=== PATIENT | male | born 1965 | race Caucasian/White ===

== ENCOUNTER → 2017-10-31 20:34 | Outpatient (CLI) | payer BC, SELFPAY | PROVIDERS: Visit Provider Physician Assistant Medical | DX: J02.9 Acute pharyngitis, unspecified (principal) | CPT/HCPCS: 87081 ==

== ENCOUNTER → 2020-06-04 10:38 | Outpatient (CLI) | payer BC, SELFPAY ==
[2018-11-11 15:23] VITALS: BMI 25.7
[2020-06-04 13:47] LABS: T4 Free Direct 0.97 ng/dL (0.76-1.46)
== END ==
PROVIDERS: PCP Family Medicine; Referring Provider Family Medicine; Visit Provider Family Medicine
DX: E04.1 Nontoxic single thyroid nodule (principal)
CPT/HCPCS: 36415; 84439; 84443

== ENCOUNTER → 2020-06-09 14:03 | Outpatient (CLI) | payer BC, SELFPAY ==
[2018-11-11 15:23] VITALS: BMI 25.7
--- NOTE | 2020-06-09 14:12 | US_ITS ---
STUDY: THYROID ULTRASOUND REASON FOR EXAM: Male, 55 years old. NODULE FELT ON EXAM TECHNIQUE: Ultrasound evaluation of the thyroid was performed with real-time and static esquivel-scale imaging. COMPARISON: None. FINDINGS: RIGHT LOBE: The right lobe of the thyroid gland measures 5.5 x 1.8 x 1.8 cm. There is a homogeneous echotexture. Arising from the inferior aspect of the lower pole of the right lobe, there is a hyperechoic solid nodule measuring 5 x 6 x 6 mm. The nodule has smooth margins. There is no associated calcification. Findings are consistent with a TI-RADS category 3, mildly suspicious. Given the small size of the nodule, less than 1.5 cm, no specific follow-up evaluation is advised. LEFT LOBE: The left lobe of the thyroid gland measures 4.9 x 1.7 x 1.9 cm. There is a homogeneous echotexture. There are no demonstrated solid, cystic or complex lesions. ISTHMUS: The isthmus measures 5 mm. . The regional lymph nodes are normal. US/Thyroid IMPRESSION: 6 mm hyperechoic solid nodule in the lower pole of the right lobe, considered mildly suspicious. Given the small size of the nodule, based on TI-RADS criteria, no specific further evaluation is advised. Otherwise, normal exam. Electronically Signed: Josh Sky MD at 3:10 EDT , Service support ,
== END ==
PROVIDERS: PCP Family Medicine; Referring Provider Family Medicine; Visit Provider Family Medicine
DX: E04.1 Nontoxic single thyroid nodule (principal)
CPT/HCPCS: 76536

== ENCOUNTER → 2020-07-16 15:34 | Outpatient (CLI) | payer BC, SELFPAY ==
[2018-11-11 15:23] VITALS: BMI 25.7
== END ==
PROVIDERS: PCP Family Medicine; Referring Provider Family Medicine; Visit Provider Family Medicine
DX: Z20.828 Contact with and (suspected) exposure to other viral communicable diseases (principal)
CPT/HCPCS: 87635; U0003

== ENCOUNTER → 2020-12-07 16:37 | Outpatient (CLI) | payer BC, SELFPAY ==
[2018-11-11 15:23] VITALS: BMI 25.7
--- NOTE | 2020-12-07 16:40 | RAD_ITS ---
INDICATION: viral illness, chest pain EXAMINATION/TECHNIQUE: X-RAY - XR Chest 2 Views COMPARISON: 08/17/2020. FINDINGS: The lungs are clear. The cardiomediastinal silhouette is unremarkable. No pleural effusion or pneumothorax. No acute osseous abnormalities. RAD/Chest PA and Lateral IMPRESSION: No acute radiographic abnormalities. Electronically Signed: Stan Garber MD at 16:59 EDT Tel , Service support ,
== END ==
PROVIDERS: PCP Family Medicine; Referring Provider Family Medicine; Visit Provider Family Medicine
DX: B34.9 Viral infection, unspecified (principal)
CPT/HCPCS: 71046; 87635; U0002

== ENCOUNTER → 2023-04-06 | Outpatient (CLI) | payer OTHER, SELFPAY ==
[2023-04-06 17:37] LABS: Absolute Lymphocyte Count 1.73 X10^3/uL (0.83-4.51); Absolute Neutrophil Count 4.8 X10^3/uL (2.0-7.7); Basophil# 0.04 X10^3/uL; Basophil% 0.5 % (0-1); Eosinophil# 0.22 X10^3/uL; Hematocrit 53.1 % (40-54); Hemoglobin 17.3 g/dL (13.0-16.5); Lymphocyte # 1.73 X10^3/ul (0.83-4.51); Lymphocyte % 23.6 % (19-41); Mean Corp Hgb Conc 32.6 g/dL (32-36); Mean Corpuscular Hgb 32.1 pg (27.0-32.0); Mean Corpuscular Volume 98.5 fL (80-94); Mean Platelet Vol. 9.3 fl (6.2-12.0); Monocyte# 0.52 X10^3/uL; Monocyte% 7.1 % (0-10); NRBC Flagged by Analyzer 0 % (0-5); Neutrophil # 4.78 X10^3/uL (2.7-7.7); Neutrophil % 65.4 % (47-70); Platelet Count 253 K/mm3 (150-450); RBC Distribution Width SD 46.9 fl (35.1-43.9); Red Blood Count 5.39 M/mm3 (4.6-6.2); White Blood Count 7.3 K/mm3 (4.4-11.0)
[2023-04-06 18:45] LABS: ALB/GLOB Ratio 0.8 RATIO (0.9-2.4); AST(SGOT) 45 U/L (15-37); Alanine Aminotransfer ALT/SGPT 46 U/L (16-61); Albumin, Serum 3.3 g/dL (3.2-5.0); Alkaline Phosphatase 114 U/L (45-117); Anion Gap 7 (5-15); BUN 8 mg/dL (7-18); BUN/Creat Ratio 7.8 RATIO (10-20); Calcium,Total 9.6 mg/dL (8.5-10.1); Chloride 106 mmol/L (98-107); Cholesterol 307 mg/dL (200); Creatinine, Serum 1.02 mg/dL (0.70-1.30); EST Glomerular Filtration Rate 80 mL/min (>60); Est Glom Filt Rate - Afr Amer 97 mL/min (>60); Globulin 4.3 g/dL (2.2-4.2); Glucose 107 mg/dL (74-106); High Density Lipoprotein 89 mg/dL; Potassium 4.8 mmol/L (3.5-5.1); Protein, Total 7.6 g/dL (6.4-8.2); Sodium Level 138 mmol/L (136-145); Triglycerides 186 mg/dL; Very Low Density Lipoprotein 37 mg/dL (5-40)
== END | disposition home or self-care (01) ==
PROVIDERS: PCP Family Medicine; Visit Provider Family Medicine
DX: I10 Essential (primary) hypertension (principal); E04.1 Nontoxic single thyroid nodule
CPT/HCPCS: 36415; 80053; 80061; 84439; 84443; 85025

== ENCOUNTER → 2023-04-09 | Outpatient (CLI) | payer OTHER, SELFPAY ==
[2023-04-09 18:10] LABS: Hemoglobin A1c 5.5 % (3.8-5.6)
[2023-04-09 18:12] LABS: Ferritin 194 ng/mL (26-388); Iron 117 ug/dL (65-175); Iron Binding Capacity,Total 320 ug/dL (250-450); PERCENT IRON SATURATION 36.6 % (15.0-55.0)
== END | disposition home or self-care (01) ==
LOC: MFPLAB 16:02
PROVIDERS: PCP Family Medicine; Visit Provider Family Medicine
DX: R71.8 Other abnormality of red blood cells (principal)
CPT/HCPCS: 36415; 82728; 83036; 83540; 83550

== ENCOUNTER → 2023-04-11 | Outpatient (CLI) | payer OTHER, SELFPAY ==
--- NOTE | 2023-04-11 16:02 | US_ITS ---
STUDY: THYROID ULTRASOUND REASON FOR EXAM: Male, 58 years old. NODULE=f/u TECHNIQUE: Ultrasound evaluation of the thyroid was performed with real-time and static esquivel-scale imaging. COMPARISON: June 09, 2020 FINDINGS: RIGHT LOBE: The right lobe of the thyroid gland measures 5.9 1.8 x 2.1 cm. There is a homogeneous echotexture. There is a solid nodule lower pole measuring 5 x 6 x 5 mm with regular margins and perinodular vascularity. LEFT LOBE: The left lobe of the thyroid gland measures 4.9 x 1.7 x 0.8 cm. There is a homogeneous echotexture. There are no demonstrated solid, cystic or complex lesions. ISTHMUS: The isthmus measures 5 mm . The regional lymph nodes are normal. The right lobe nodule stable since prior study and there are no new nodules or other significant change US/Thyroid IMPRESSION: Stable appearance solid nodule in the right lobe of the thyroid.. Recommend clinical correlation and follow-up imaging if clinically warranted Electronically Signed: Nnamdi Aguilar MD at 22:59 EDT ,
== END | disposition home or self-care (01) ==
LOC: US 16:00
PROVIDERS: PCP Family Medicine; Referring Provider Family Medicine; Visit Provider Family Medicine
DX: E04.1 Nontoxic single thyroid nodule (principal); R94.31 Abnormal electrocardiogram [ECG] [EKG]; R06.02 Shortness of breath; I10 Essential (primary) hypertension
CPT/HCPCS: 76536

== ENCOUNTER → 2023-04-17 | Outpatient (CLI) | payer OTHER, SELFPAY ==
--- NOTE | 2023-04-17 06:45 | EKG12_ITS ---
Test Reason : HTN Blood Pressure : / mmHG Vent. Rate : 069 BPM Atrial Rate : 069 BPM P-R Int : 166 ms QRS Dur : 148 ms QT Int : 472 ms P-R-T Axes : 034 013 226 degrees QTc Int : 505 ms Normal sinus rhythm Left bundle branch block Abnormal ECG No previous ECGs available Confirmed by GIANFRANCO FIORE, QUINCY ([id number]), newspaper or periodical editor JANA WORRELL ([id number]) on 04/17/2023 2:11:51 PM Referred By: Gunner Barger Confirmed By:QUINCY MEDEL MD
--- NOTE | 2023-04-17 06:46 | ECHOD_ITS ---
Version 2 Reason For Study: ABN EKG Procedure This was a 2D Doppler, Color Flow transthoracic echocardiogram. The study was technically difficult. Contrast injection was performed. Exam performed in department. Left Ventricle Normal LV size. Left ventricular systolic function is normal. The estimated ejection fraction is 60 %. No regional wall motion abnormalities noted. Right Ventricle Normal RV size. Normal systolic function. Atria Normal left atrium. Normal right atrium. Mitral Valve Normal mitral valve. Tricuspid Valve Normal tricuspid valve. Aortic Valve The aortic valve is not well visualized. Pulmonic Valve Normal pulmonic valve. Great Vessels Normal aortic root. The pulmonary is not well visualized. Normal inferior vena cava. Pericardium/Pleural No pericardial effusion. Medication Diluted definity 2.5ml given slow IV push to enhance endocardial definition. MMode/2D Measurements & Calculations Ao root diam: 3.7 cm LAV(MOD-sp4): 41.6 ml LVAd ap4: 41.7 cm2 LVLd ap4: 10.0 cm EDV(MOD-sp4): 143.3 ml EDV(sp4-el): 148.0 ml LVAs ap4: 25.5 cm2 LVLs ap4: 8.6 cm ESV(MOD-sp4): 61.3 ml ESV(sp4-el): 64.5 ml EF(MOD-sp4): 57.2 % EF(sp4-el): 56.4 % SV(MOD-sp4): 82.0 ml SV(sp4-el): 83.5 ml LA A4 area: 15.3 cm2 LA dimension(2D): 4.1 cm TAPSE: 3.6 cm RA A4 area: 8.1 cm2 Time Measurements MV dec time: 0.18 sec Doppler Measurements & Calculations MV E max mode: 57.2 cm/sec Lat Peak E' Mode: 11.0 cm/sec Med Peak E' Mode: 7.6 cm/sec MV A max mode: 67.4 cm/sec E/E' lat: 5.2 E/E' med: 7.6 MV E/A: 0.85 MV V2 max: 74.6 cm/sec MV dec slope: 335.1 cm/sec2 Ao V2 max: 129.9 cm/sec MV max P.2 mmHg Ao max P.7 mmHg MV V2 mean: 39.1 cm/sec Ao V2 mean: 92.4 cm/sec MV mean P.76 mmHg Ao mean P.9 mmHg MV V2 VTI: 20.6 cm Ao V2 VTI: 28.3 cm AV (velocity ratio): 0.93 LV V1 max: 105.9 cm/sec PA V2 max: 77.9 cm/sec LV V1 max P.5 mmHg PA V2 mean: 52.8 cm/sec LV V1 mean P.0 mmHg LV V1 mean: 63.8 cm/sec LV V1 VTI: 26.3 cm ECHO/Echo Complete W/ Contrast Interpretation Summary Normal LV size. Left ventricular systolic function is normal. The estimated ejection fraction is 60 %. Contrast injection was performed. The study was technically difficult. Ordering Physician: Gunner Barger Referring Physician: Gunner Barger Performed By: Mendy Alexander RCS
--- NOTE | 2023-04-17 16:45 | STRESSREP ---
Stress Test Report Pharmacologic myocardial perfusion stress test. 58-year-old man with a history shortness of breath and abnormal EKG Resting EKG demonstrates sinus rhythm with a rate of 69 bpm. Left bundle branch block is noted. Resting blood pressure is 130/90 mmHg. 0.4 mg of regadenoson was infused per usual protocol followed by rapid intravenous saline flush injection. Continuous EKG monitoring was performed. The maximum heart rate was 112 bpm which was 68% of max impacted heart rate the maximum workload was 1 metabolic equivalent. At rest there were no ST or T wave changes noted to suggest ischemia and at peak infusion nonspecific ST changes were noted which did not meet the criteria for ischemia. No clinical angina is noted. The final blood pressure was 170/102 mmHg. Myocardial perfusion protocol. 14.5 mCi of technetium 99m sestamibi was injected at rest. 0.4 mg of regadenoson was infused per usual protocol. At peak infusion 44.6 mCi of technetium 99m sestamibi was injected stress images were obtained stress and rest images were reconstructed and compared in the short axis vertical long and horizontal long axis. Gated images were also obtained. Perfusion SPECT analysis: Review of the stress images demonstrate normal uptake of tracer noted in all areas of the myocardium there is reduction of perfusion noted in the anterior septal wall present. The resting images similar demonstrated normal uptake of tracer noted in all areas of the myocardium except for the anterior septal wall with reduced perfusion. No areas of reversibility are noted to suggest ischemia and no previous infarct is noted. The above plaquing is seen with left bundle branch block morphology. Gated SPECT analysis: The gated ejection fraction is 54%. Conclusion: Normal pharmacologic myocardial perfusion stress test. Preserved ejection fraction.
== END | disposition home or self-care (01) ==
LOC: CVS 06:44
PROVIDERS: PCP Family Medicine; Referring Provider Family Medicine; Visit Provider Family Medicine
DX: E04.1 Nontoxic single thyroid nodule (principal); R94.31 Abnormal electrocardiogram [ECG] [EKG]; R06.02 Shortness of breath; I10 Essential (primary) hypertension
CPT/HCPCS: 78452; 93005; 93017; 93306; A9500; Q9957; A4216; C8929; J2785

== ENCOUNTER → 2023-07-20 | Outpatient (CLI) | payer OTHER, SELFPAY ==
[2023-07-20 17:33] LABS: Absolute Neutrophil Count 4.4 X10^3/uL (2.0-7.7); Basophil# 0.05 X10^3/uL; Basophil% 0.7 % (0-1); Eosinophil# 0.23 X10^3/uL; Eosinophils% 3.3 % (0-5); Hematocrit 44.7 % (40-54); Hemoglobin 14.6 g/dL (13.0-16.5); Lymphocyte % 24.7 % (19-41); Mean Corp Hgb Conc 32.7 g/dL (32-36); Mean Corpuscular Hgb 31.9 pg (27.0-32.0); Mean Corpuscular Volume 97.6 fL (80-94); Mean Platelet Vol. 8.8 fl (6.2-12.0); Monocyte# 0.48 X10^3/uL; NRBC Flagged by Analyzer 0 % (0-5); Neutrophil # 4.41 X10^3/uL (2.7-7.7); Platelet Count 252 K/mm3 (150-450); RBC Distribution Width CV 12.4 % (11.6-14.6); RBC Distribution Width SD 44.3 fl (35.1-43.9); Red Blood Count 4.58 M/mm3 (4.6-6.2); White Blood Count 6.9 K/mm3 (4.4-11.0)
[2023-07-20 18:20] LABS: ALB/GLOB Ratio 0.8 RATIO (0.9-2.4); AST(SGOT) 23 U/L (15-37); Alanine Aminotransfer ALT/SGPT 24 U/L (16-61); Albumin, Serum 3.3 g/dL (3.2-5.0); Alkaline Phosphatase 87 U/L (45-117); Anion Gap 6 (5-15); BUN 13 mg/dL (7-18); BUN/Creat Ratio 11.8 RATIO (10-20); Chloride 106 mmol/L (98-107); Cholesterol 241 mg/dL (200); EST Glomerular Filtration Rate 74 mL/min (>60); Est Glom Filt Rate - Afr Amer 89 mL/min (>60); Glucose 89 mg/dL (74-106); High Density Lipoprotein 138 mg/dL; Potassium 3.6 mmol/L (3.5-5.1); Protein, Total 7.3 g/dL (6.4-8.2); Sodium Level 138 mmol/L (136-145); Triglycerides 69 mg/dL; Very Low Density Lipoprotein 14 mg/dL (5-40)
== END | disposition home or self-care (01) ==
LOC: MTLAB 16:48
PROVIDERS: PCP Family Medicine; Referring Provider Family Medicine; Visit Provider Family Medicine
DX: I10 Essential (primary) hypertension (principal)
CPT/HCPCS: 36415; 80053; 80061; 85025

== ENCOUNTER → 2024-07-03 | Outpatient (CLI) | payer OTHER, SELFPAY ==
[2024-07-03 16:24] LABS: Mucous, Urine 0 SEEN /hpf (<or=2+); Red Blood Cells-Urine 0 SEEN /hpf (0-5); White Blood Cells 0 SEEN /hpf (0-5)
[2024-07-03 18:08] LABS: Absolute Lymphocyte Count 2.06 X10^3/uL (0.83-4.51); Absolute Neutrophil Count 5.2 X10^3/uL (2.0-7.7); Basophil# 0.05 X10^3/uL; Basophil% 0.6 % (0-1); Eosinophil# 0.23 X10^3/uL; Eosinophils% 2.8 % (0-5); Hematocrit 41.7 % (40-54); Hemoglobin 13.9 g/dL (13.0-16.5); Lymphocyte # 2.06 X10^3/ul (0.83-4.51); Lymphocyte % 25.5 % (19-41); Mean Corp Hgb Conc 33.3 g/dL (32-36); Mean Corpuscular Hgb 32.1 pg (27.0-32.0); Mean Corpuscular Volume 96.3 fL (80-94); Mean Platelet Vol. 9.3 fl (6.2-12.0); Monocyte# 0.54 X10^3/uL; Monocyte% 6.7 % (0-10); NRBC Flagged by Analyzer 0 % (0-5); Neutrophil # 5.18 X10^3/uL (2.7-7.7); Platelet Count 255 K/mm3 (150-450); RBC Distribution Width CV 12.5 % (11.6-14.6); RBC Distribution Width SD 44.8 fl (35.1-43.9); Red Blood Count 4.33 M/mm3 (4.6-6.2); White Blood Count 8.1 K/mm3 (4.4-11.0)
[2024-07-03 18:15] LABS: Color, Urine Yellow (Yellow); Glucose, Dipstick Normal (Normal); Ketone-Dipstick Negative (Negative); Leukocyte Esterase-Dipstick Negative /ul (Negative); Nitrite-Dipstick Negative (Negative); Occult Blood-Urine Negative /ul (Negative); Protein-Dipstick 100 mg/dl (Negative); Urine Bilirubin Dipstick Negative (Negative); Urine Clarity Clear (Clear); Urine Urobilinogen Normal (Normal)
[2024-07-03 18:24] LABS: ALB/GLOB Ratio 0.9 RATIO (0.9-2.4); AST(SGOT) 38 U/L (15-37); Alanine Aminotransfer ALT/SGPT 32 U/L (16-61); Albumin, Serum 3.4 g/dL (3.2-5.0); Alkaline Phosphatase 88 U/L (45-117); Anion Gap 7 (5-15); BUN 14 mg/dL (7-18); Calcium,Total 9.4 mg/dL (8.5-10.1); Chloride 106 mmol/L (98-107); Cholesterol 201 mg/dL (200); Creatinine, Serum 1.17 mg/dL (0.70-1.30); EST Glomerular Filtration Rate 68 mL/min (>60); Est Glom Filt Rate - Afr Amer 83 mL/min (>60); Globulin 3.8 g/dL (2.2-4.2); Glucose 94 mg/dL (74-106); High Density Lipoprotein 118 mg/dL; Magnesium 2.1 mg/dL (1.6-2.6); Potassium 4.4 mmol/L (3.5-5.1); Protein, Total 7.2 g/dL (6.4-8.2); Sodium Level 137 mmol/L (136-145); Triglycerides 211 mg/dL; Very Low Density Lipoprotein 42 mg/dL (5-40)
[2024-07-03 18:42] LABS: Bacteria RARE /hpf (None Seen); Squamous Epithelial Cells - UA 0-5 SEEN /hpf (0-5)
[2024-07-04 11:12] LABS: Vitamin B12 573 pg/mL (211-911)
[2024-07-10 01:07] LABS: VITAMIN B6 11.6 ug/L (3.4-65.2); Vitamin B1, Thiamine 109.3 nmol/L (66.5-200.0)
== END | disposition home or self-care (01) ==
LOC: MFPLAB 16:18
PROVIDERS: PCP Family Medicine; Visit Provider Family Medicine
DX: I10 Essential (primary) hypertension (principal); E78.5 Hyperlipidemia, unspecified; G62.9 Polyneuropathy, unspecified
CPT/HCPCS: 36415; 80053; 80061; 81001; 82607; 83735; 84207; 84425; 84443; 85025